=== PATIENT | female | born 1965 | race American Indian/Alaskan Native ===

== ENCOUNTER 2018-01-07 06:35 | Emergency (ER) | payer OTHER ==
[2018-01-07] MEDS ORDERED: TORADOL IM ONE (09:19)
--- NOTE | 2018-01-07 09:26 | Emergency Department Report ---
ED Lower Extremity HPI - General Chief Complaint: Extremity Problem,Nontraumatic Stated Complaint: LEG PAIN Time Seen by Provider: 01/07/18 09:10 Source: patient Mode of arrival: Ambulatory Limitations: No Limitations - History of Present Illness Initial Comments: This is a 52-year-old female nontoxic, well nourished in appearance, no acute signs of distress presents to the ED with c/o of bilateral knee pain and right thigh pain status post fall that occurred on 12/24/2017. Patient stated she was at work when a person fell on her and she strained her thigh and fell on her knees. Patient describes thigh pain as cramping. Patient stated that she did not have any trauma to the head or any other extremities. Patient stated that bilateral knees are swellown. Patient denies any joint redness, fever, chills, nausea, vomiting, chest pain or shortness breath. Patient denies abnormal or decreased gait. Patient denies any allergies or PMH. MD Complaint: thigh injury, knee injury Injury: Thigh: Left, Knee: Right, Left Type of Injury: blunt Place: work Severity: mild Severity scale (0 -10): 8 Improves With: immobilization Worsens With: movement, palpation Context: fall Associated Symptoms: swelling, able to partially bear weight, ambulatory. denies: snap/pop sensation, numbness, tingling, unable to bear weight - Related Data Previous Rx's Medication Instructions Recorded Last Taken Type Cyclobenzaprine [Flexeril] 10 mg PO QHS PRN #7 tablet 01/07/18 Unknown Rx Ibuprofen [Motrin] 600 mg PO Q8H PRN #30 tablet 01/07/18 Unknown Rx Allergies Allergy/AdvReac Type Severity Reaction Status Date / Time No Known Allergies Allergy Unverified 01/07/18 07:28 ED Review of Systems ROS: Stated complaint: LEG PAIN Other details as noted in HPI Constitutional: denies: chills, fever Eyes: denies: eye pain, eye discharge, vision change ENT: denies: ear pain, throat pain Respiratory: denies: cough, shortness of breath, wheezing Cardiovascular: denies: chest pain, palpitations Endocrine: no symptoms reported Gastrointestinal: denies: abdominal pain, nausea, diarrhea Genitourinary: denies: urgency, dysuria, discharge Musculoskeletal: arthralgia. denies: back pain, joint swelling Skin: denies: rash, lesions Neurological: denies: headache, weakness, paresthesias Psychiatric: denies: anxiety, depression Hematological/Lymphatic: denies: easy bleeding, easy bruising ED Past Medical Hx - Past Medical History Previous Medical History?: No - Surgical History Past Surgical History?: Yes Additional Surgical History: tubal ligation - Social History Smoking Status: Never Smoker Substance Use Type: Alcohol - Medications Home Medications: Home Medications Medication Instructions Recorded Confirmed Last Taken Type Cyclobenzaprine [Flexeril] 10 mg PO QHS PRN #7 tablet 01/07/18 Unknown Rx Ibuprofen [Motrin] 600 mg PO Q8H PRN #30 tablet 01/07/18 Unknown Rx ED Physical Exam - General Limitations: No Limitations General appearance: alert, in no apparent distress - Head Head exam: Present: atraumatic, normocephalic - Eye Eye exam: Present: normal appearance Pupils: Present: normal accommodation - ENT ENT exam: Present: normal exam, mucous membranes moist - Neck Neck exam: Present: normal inspection, full ROM. Absent: tenderness, meningismus, lymphadenopathy - Respiratory Respiratory exam: Present: normal lung sounds bilaterally. Absent: respiratory distress, wheezes, rales, rhonchi, stridor, chest wall tenderness, accessory muscle use, decreased breath sounds, prolonged expiratory - Cardiovascular Cardiovascular Exam: Present: regular rate, normal rhythm, normal heart sounds. Absent: bradycardia, tachycardia, irregular rhythm, systolic murmur, diastolic murmur, rubs, gallop - GI/Abdominal GI/Abdominal exam: Present: soft, normal bowel sounds. Absent: distended, tenderness, guarding, rebound, rigid, diminished bowel sounds - Rectal Rectal exam: Present: deferred - Extremities Exam Extremities exam: Present: normal inspection, full ROM, tenderness, normal capillary refill. Absent: pedal edema, joint swelling, calf tenderness - Expanded Lower Extremity Exam Right Hip exam: Present: normal inspection (bilateral exam), full ROM. Absent: tenderness, swelling Upper Leg exam: Present: normal inspection (bilateral exam), full ROM, tenderness (right thigh anterior). Absent: swelling, abrasion, laceration, ecchymosis, deformity, crepidus, dislocation, erythema Knee exam: Present: normal inspection (bilateral exam), full ROM, tenderness ( bilateral), full knee extension. Absent: swelling, abrasion, laceration, ecchymosis, deformity, crepidus, dislocation, erythema, effusion, pain w/ pronation/supination, posterior draw sign, pain/laxity with valgus, pain/laxity with varus Lower Leg exam: Present: normal inspection (bilateral exam), full ROM. Absent: tenderness, swelling Ankle exam: Present: normal inspection (bilateral exam), full ROM. Absent: tenderness, swelling Foot/Toe exam: Present: normal inspection (bilateral exam). Absent: full ROM, tenderness, swelling Neuro vascular tendon exam: Present: no vascular compromise (bilateral exam). Absent: pulse deficit, abnormal cap refill, motor deficit, sensory deficit, tendon deficit, extremity cold to touch, pallor, abnormal 2-point discrimination , decreased fine/light touch, foot drop, peroneal nerve deficit, significant pain with passive ROM of distal joint Gait: Positive: observed and limited by pain (bilateral exam) - Back Exam Back exam: Present: normal inspection, full ROM. Absent: tenderness, CVA tenderness (R), CVA tenderness (L), paraspinal tenderness, vertebral tenderness - Neurological Exam Neurological exam: Present: alert, oriented X3, normal gait - Psychiatric Psychiatric exam: Present: normal affect, normal mood - Skin Skin exam: Present: warm, dry, intact, normal color. Absent: rash ED Course Vital Signs 01/07/18 07:15 Temperature 98.1 F Pulse Rate 83 Respiratory 18 Rate Blood Pressure 165/108 O2 Sat by Pulse 98 Oximetry - Reevaluation(s) Reevaluation #1: 01/07/18 09:27 Patient is speaking in full sentences with no signs of distress noted. ED Lower Extremity MDM - Medical Decision Making This is a 52-year-old female that presents with bilateral knee and right thigh strain. Patient is stable and was examined by me. I referred patient to an orthopedic doctor for further evaluation for possible MRI. X-ray has been obtained and dictated by the radiologist. Patient is notified of the x-ray report with noted by the patient. Patient does have normal gait with no tenderness and no joint swelling. No ecchymosis. no joint redness or swelling. Not warm to touch. No signs of cellulites present. Patient received a walker in the ED. Patient was instructed to RICE therapy. 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 Patient is discharged with Motrin and Flexiril and was instructed not to operate any machinery while taking Flexeril due to possible drowsiness. At time of discharge, the patient does not seem toxic or ill in appearance. No acute signs of distress noted. Patient agrees to discharge treatment plan of care. No further questions noted by the patient. Critical care attestation.: If time is entered above; I have spent that time in minutes in the direct care of this critically ill patient, excluding procedure time. ED Disposition Clinical Impression: Strain of knee, bilateral Muscle strain of right thigh Qualifiers: Encounter type: initial encounter Qualified Code(s): S76.911A - Strain of unspecified muscles, fascia and tendons at thigh level, right thigh, initial encounter Disposition: TO HOME OR SELFCARE Is pt being admited?: No Does the pt Need Aspirin: No Condition: Stable Instructions: Muscle Strain (ED), Knee Pain (ED), RICE Therapy (ED), Cyclobenzaprine (By mouth), Ibuprofen (By mouth) Additional Instructions: Follow-up with your primary care doctor in 3-5 days or if symptoms worsen such as bladder or bowel stability, chest pain, short of breath, numbness or tingling sensation in extremities, headache, dizziness, visual changes, nausea vomiting, or abdominal pain, return back to emergency room as was possible. Take ibuprofen and Flexeril as prescribed. Do not operate heavy machinery while taking Flexeril due to sedation Prescriptions: Cyclobenzaprine [Flexeril] 10 mg PO QHS PRN #7 tablet PRN Reason: Muscle Spasm Ibuprofen [Motrin] 600 mg PO Q8H PRN #30 tablet PRN Reason: Pain Referrals: PRIMARY CAREMD [Primary Care Provider] - 3-5 Days MENG SHRESTHA MD [Staff Physician] - 3-5 Days MARY SMITH MD [Staff Physician] - 3-5 Days [facility] [Outside] - 3-5 Days [facility] [Outside] - 3-5 Days Forms: Work/School Release Form(ED)
[2018-01-07 09:50] VITALS: BP 152/104
--- NOTE | 2018-01-07 10:11 | XRay Report ---
RIGHT FEMUR: HISTORY: pain. AP and lateral views of the femur demonstrate normal mineralization and contours for this patient's age. No destructive changes are noted and the adjacent soft tissues are normal. Moderate osteoarthritic changes are identified at the right hip. IMPRESSION: Normal right femur.
--- NOTE | 2018-01-07 10:11 | XRay Report ---
RIGHT KNEE, 3 views: History: Fall with pain. The bony architecture is intact without evidence of fracture or dislocation. Mild osteoarthritic changes are noted. No significant soft tissue abnormality is seen. IMPRESSION: Mild osteoarthritis.
== END 2018-01-07 10:31 | disposition home or self-care (01) ==
LOC: ED 06:35
DX: S76.912A Strain of unspecified muscles, fascia and tendons at thigh level, left thigh, initial encounter (principal); S76.911A Strain of unspecified muscles, fascia and tendons at thigh level, right thigh, initial encounter; W18.30XA Fall on same level, unspecified, initial encounter; Y93.89 Activity, other specified; Y99.8 Other external cause status; Y92.89 Other specified places as the place of occurrence of the external cause
CPT/HCPCS: 73552; 73562; 96372; 99283; J1885

== ENCOUNTER 2020-08-08 23:44 | Emergency (ER) | payer OTHER ==
[2020-08-09 01:51] LABS: Hematocrit 34.8 % (30.3-42.9); Hemoglobin 11.2 gm/dl (10.1-14.3); Mean Corpuscular HGB Conc 32 % (30-34); Mean Corpuscular Volume 70 fl (79-97); Platelet Count 224 K/mm3 (140-440); Red Blood Count 4.94 M/mm3 (3.65-5.03); Red Cell Distribution Width 15.6 % (13.2-15.2)
[2020-08-09 01:59] LABS: Basophils % (Auto) 0.3 % (0.0-1.8); Eosinophils % (Auto) 0.7 % (0.0-4.3); Lymphocytes # (Auto) 0.8 K/mm3 (1.2-5.4); Lymphocytes % (Auto) 12.4 % (13.4-35.0); Monocytes # (Auto) 1.1 K/mm3 (0.0-0.8)
[2020-08-09 02:08] LABS: Blood Urea Nitrogen 11 mg/dL (7-17); Calcium 9.6 mg/dL (8.4-10.2); Hemolysis Index 0
--- NOTE | 2020-08-09 02:16 | XRay Report ---
CHEST 1 VIEW INDICATION: Chest Pain. COMPARISON: None FINDINGS: SUPPORT DEVICES: None. HEART: Within normal limits. LUNGS/PLEURA: No acute air space or interstitial disease. ADDITIONAL FINDINGS: None. IMPRESSION: 1. No acute findings. Signer Name: Tyson Klein MD Signed: 08/09/2020 2:12 AM Workstation Name: [id number]
[2020-08-09 02:28] LABS: BUN/Creatinine Ratio 16
[2020-08-09] MEDS ORDERED: METOPROLOL TARTRATE 5 MG/5 ML INJ IV ONE (06:04)
[2020-08-09] MEDS ORDERED: ACETAMINOPHEN 325 MG TAB PO ONE (06:04)
--- NOTE | 2020-08-09 06:06 | Emergency Department Report ---
ED General Adult HPI - General Chief complaint: Headache Stated complaint: HEADACHE FEVER KNEE PAIN Time Seen by Provider: 08/09/20 05:58 Source: patient Mode of arrival: Ambulatory Limitations: No Limitations - History of Present Illness Initial comments: Patient is a 53-year-old female presents emergency department for evaluation of intermittent mild frontal headache associated with mild diffuse body aches x2 to 3 days. Patient denies fever, denies cough, shortness of breath. Severity scale (0 -10): 0 - Related Data Previous Rx's Medication Instructions Recorded Last Taken Type Cyclobenzaprine [Flexeril] 10 mg PO QHS PRN #7 tablet 01/07/18 Unknown Rx Ibuprofen [Motrin] 600 mg PO Q8H PRN #30 tablet 01/07/18 Unknown Rx Albuterol Mdi (or & Nicu Only) 2 puff IH QID PRN #1 inhalation 07/28/18 Unknown Rx [ProAir HFA Inhaler] HYDROcodone/APAP 5-325 [[place] 1 each PO Q4HR PRN #12 tablet 07/28/18 Unknown Rx 5/325] Ibuprofen [Motrin] 600 mg PO Q8H PRN #20 tablet 07/28/18 Unknown Rx Ondansetron [Zofran Odt] 4 mg PO Q8HR PRN #10 tab.rapdis 07/28/18 Unknown Rx predniSONE [Deltasone] 20 mg PO QDAY #5 tab 07/28/18 Unknown Rx amLODIPine 5 mg PO DAILY #30 tab 08/09/20 Unknown Rx Allergies Allergy/AdvReac Type Severity Reaction Status Date / Time Penicillins Allergy Unknown Verified 08/09/20 00:37 ED Review of Systems ROS: Stated complaint: HEADACHE FEVER KNEE PAIN Other details as noted in HPI Comment: All other systems reviewed and negative ED Past Medical Hx - Past Medical History Previous Medical History?: Yes Hx Hypertension: Yes (New onset) Hx GERD: Yes Additional medical history: Cataracts. Seasonal Allergies - Surgical History Past Surgical History?: Yes Additional Surgical History: tubal ligation. x1 - Social History Smoking Status: Never Smoker Substance Use Type: Alcohol - Medications Home Medications: Home Medications Medication Instructions Recorded Confirmed Last Taken Type Cyclobenzaprine [Flexeril] 10 mg PO QHS PRN #7 tablet 01/07/18 Unknown Rx Ibuprofen [Motrin] 600 mg PO Q8H PRN #30 tablet 01/07/18 Unknown Rx Albuterol Mdi (or & Nicu Only) 2 puff IH QID PRN #1 inhalation 07/28/18 Unknown Rx [ProAir HFA Inhaler] HYDROcodone/APAP 5-325 [[place] 1 each PO Q4HR PRN #12 tablet 07/28/18 Unknown Rx 5/325] Ibuprofen [Motrin] 600 mg PO Q8H PRN #20 tablet 07/28/18 Unknown Rx Ondansetron [Zofran Odt] 4 mg PO Q8HR PRN #10 tab.rapdis 07/28/18 Unknown Rx predniSONE [Deltasone] 20 mg PO QDAY #5 tab 07/28/18 Unknown Rx amLODIPine 5 mg PO DAILY #30 tab 08/09/20 Unknown Rx ED Physical Exam - General Limitations: No Limitations General appearance: alert, in no apparent distress - Head Head exam: Present: atraumatic, normocephalic - Eye Eye exam: Present: normal appearance - ENT ENT exam: Present: mucous membranes moist - Neck Neck exam: Present: normal inspection - Respiratory Respiratory exam: Present: normal lung sounds bilaterally. Absent: respiratory distress - Cardiovascular Cardiovascular Exam: Present: regular rate, normal rhythm. Absent: systolic murmur, diastolic murmur, rubs, gallop - GI/Abdominal GI/Abdominal exam: Present: soft, normal bowel sounds - Extremities Exam Extremities exam: Present: normal inspection - Back Exam Back exam: Present: normal inspection - Neurological Exam Neurological exam: Present: alert, oriented X3 - Psychiatric Psychiatric exam: Present: normal affect, normal mood - Skin Skin exam: Present: warm, dry, intact, normal color. Absent: rash ED Course Vital Signs 08/09/20 08/09/20 08/09/20 00:33 01:08 04:14 Temperature 98.7 F 98.6 F Pulse Rate 87 92 H 85 Respiratory 16 18 16 Rate Blood Pressure 182/115 186/123 180/115 O2 Sat by Pulse 97 97 96 Oximetry 08/09/20 08/09/20 08/09/20 04:15 04:32 04:45 Temperature Pulse Rate 84 90 Respiratory 15 Rate Blood Pressure 188/98 202/119 O2 Sat by Pulse 97 99 97 Oximetry 08/09/20 08/09/20 08/09/20 04:57 05:00 05:01 Temperature Pulse Rate 82 84 86 Respiratory 33 H 11 L 30 H Rate Blood Pressure 202/119 199/118 199/118 O2 Sat by Pulse 97 98 95 Oximetry 08/09/20 08/09/20 08/09/20 05:13 05:21 05:35 Temperature Pulse Rate 92 H 85 84 Respiratory 13 15 Rate Blood Pressure 202/119 198/120 198/120 O2 Sat by Pulse 99 96 Oximetry 08/09/20 08/09/20 08/09/20 05:41 05:45 06:00 Temperature Pulse Rate 86 84 82 Respiratory 27 H 24 34 H Rate Blood Pressure 201/125 193/119 192/114 O2 Sat by Pulse 99 97 98 Oximetry 08/09/20 08/09/20 08/09/20 06:21 06:40 07:01 Temperature Pulse Rate 84 97 H Respiratory 13 25 H Rate Blood Pressure 181/101 174/118 185/129 O2 Sat by Pulse 98 94 Oximetry 08/09/20 08/09/20 07:20 08:15 Temperature Pulse Rate Respiratory Rate Blood Pressure 184/117 166/99 O2 Sat by Pulse 100 Oximetry - Reevaluation(s) Reevaluation #1: 08/09/20 06:05 Patient initially treated with IV Lopressor and p.o. Tylenol. Reevaluation #2: 08/09/20 08:31 Patient treated with IV normal saline for myalgias and complaint of dehydration. Treated with clonidine p.o. and Tylenol p.o. On reevaluation, patient in no acute distress, denies headache. Neurologic exam remains nonfocal, patient now with resolving hypertension. Advised patient follow-up with primary care physician for reevaluation and formal hypertension evaluation. ED Medical Decision Making - Lab Data Result diagrams: 08/09/20 01:18 08/09/20 01:18 Lab Results 08/09/20 08/09/20 08/09/20 Range/Units 01:18 01:18 04:07 WBC 6.7 (4.5-11.0) K/mm3 RBC 4.94 (3.65-5.03) M/mm3 Hgb 11.2 (10.1-14.3) gm/dl Hct 34.8 (30.3-42.9) % MCV 70 L (79-97) fl MCH 23 L (28-32) pg MCHC 32 (30-34) % RDW 15.6 H (13.2-15.2) % Plt Count 224 (140-440) K/mm3 Lymph % (Auto) 12.4 L (13.4-35.0) % [place] % (Auto) [employer] Eos % (Auto) 0.7 (0.0-4.3) % Baso % (Auto) 0.3 (0.0-1.8) % Lymph # (Auto) 0.8 L (1.2-5.4) K/mm3 [place] # (Auto) 1.1 H (0.0-0.8) K/mm3 Eos # (Auto) 0.0 (0.0-0.4) K/mm3 Baso # (Auto) 0.0 (0.0-0.1) K/mm3 Seg Neutrophils % 70.4 H (40.0-70.0) % Seg Neutrophils # 4.7 (1.8-7.7) K/mm3 Sodium 138 (137-145) mmol/L Potassium 4.0 (3.6-5.0) mmol/L Chloride 102.7 (98-107) mmol/L Carbon Dioxide 23 (22-30) mmol/L Anion Gap 16 mmol/L BUN 11 (7-17) mg/dL Creatinine 0.7 (0.6-1.2) mg/dL Estimated GFR > 60 ml/min BUN/Creatinine Ratio 16 % Glucose 102 H (65-100) mg/dL Calcium 9.6 (8.4-10.2) mg/dL Troponin T < 0.010 < 0.010 (0.00-0.029) ng/mL 08/09/20 Range/Units 07:07 WBC (4.5-11.0) K/mm3 RBC (3.65-5.03) M/mm3 Hgb (10.1-14.3) gm/dl Hct (30.3-42.9) % MCV (79-97) fl MCH (28-32) pg MCHC (30-34) % RDW (13.2-15.2) % Plt Count (140-440) K/mm3 Lymph % (Auto) (13.4-35.0) % [place] % (Auto) Eos % (Auto) (0.0-4.3) % Baso % (Auto) (0.0-1.8) % Lymph # (Auto) (1.2-5.4) K/mm3 [place] # (Auto) (0.0-0.8) K/mm3 Eos # (Auto) (0.0-0.4) K/mm3 Baso # (Auto) (0.0-0.1) K/mm3 Seg Neutrophils % (40.0-70.0) % Seg Neutrophils # (1.8-7.7) K/mm3 Sodium (137-145) mmol/L Potassium (3.6-5.0) mmol/L Chloride (98-107) mmol/L Carbon Dioxide (22-30) mmol/L Anion Gap mmol/L BUN (7-17) mg/dL Creatinine (0.6-1.2) mg/dL Estimated GFR ml/min BUN/Creatinine Ratio % Glucose (65-100) mg/dL Calcium (8.4-10.2) mg/dL Troponin T < 0.010 (0.00-0.029) ng/mL Vital Signs 08/09/20 08/09/20 08/09/20 00:33 01:08 04:14 Temperature 98.7 F 98.6 F Pulse Rate 87 92 H 85 Respiratory 16 18 16 Rate Blood Pressure 182/115 186/123 180/115 O2 Sat by Pulse 97 97 96 Oximetry 08/09/20 08/09/20 08/09/20 04:15 04:32 04:45 Temperature Pulse Rate 84 90 Respiratory 15 Rate Blood Pressure 188/98 202/119 O2 Sat by Pulse 97 99 97 Oximetry 08/09/20 08/09/20 08/09/20 04:57 05:00 05:01 Temperature Pulse Rate 82 84 86 Respiratory 33 H 11 L 30 H Rate Blood Pressure 202/119 199/118 199/118 O2 Sat by Pulse 97 98 95 Oximetry 08/09/20 08/09/20 08/09/20 05:13 05:21 05:35 Temperature Pulse Rate 92 H 85 84 Respiratory 13 15 Rate Blood Pressure 202/119 198/120 198/120 O2 Sat by Pulse 99 96 Oximetry 08/09/20 08/09/20 08/09/20 05:41 05:45 06:00 Temperature Pulse Rate 86 84 82 Respiratory 27 H 24 34 H Rate Blood Pressure 201/125 193/119 192/114 O2 Sat by Pulse 99 97 98 Oximetry 08/09/20 08/09/20 08/09/20 06:21 06:40 07:01 Temperature Pulse Rate 84 97 H Respiratory 13 25 H Rate Blood Pressure 181/101 174/118 185/129 O2 Sat by Pulse 98 94 Oximetry 08/09/20 08/09/20 07:20 08:15 Temperature Pulse Rate Respiratory Rate Blood Pressure 184/117 166/99 O2 Sat by Pulse 100 Oximetry - EKG Data -: EKG Interpreted by Me (Sinus rhythm 86, no ST-T changes, normal QRS as read by me) Critical care attestation.: If time is entered above; I have spent that time in minutes in the direct care of this critically ill patient, excluding procedure time. ED Disposition Clinical Impression: Headache, Myalgia, Hypertensive disorder Disposition: - TO HOME OR SELFCARE Is pt being admited?: No Condition: Stable Instructions: Hypertension (ED), Hypertension, Adult, [id number] Additional Instructions: Follow-up with primary care doctor in 1 to 2 days for reevaluation. You require a formal evaluation for hypertension. Please note a primary care physician has been provided on your discharge in the event you are unable to follow-up with your own physician or clinic. Return to the emergency department for worsening symptoms. Prescriptions: amLODIPine 5 mg PO DAILY #30 tab Referrals: DEBORAH JEAN BAPTISTE MD [Primary Care Provider] - 3-5 Days ESMER NIÑO MD [Staff Physician] - 3-5 Days
[2020-08-09] MEDS ORDERED: SODIUM CHLORIDE 0.9% 1000 ML 1,000 ML IV ONE (06:26)
[2020-08-09] MEDS ORDERED: cloNIDine 0.1 MG TAB PO ONE (07:52)
[2020-08-09 08:52] VITALS: BP 151/102
== END 2020-08-09 09:00 | disposition home or self-care (01) ==
LOC: ED 23:44
DX: I10 Essential (primary) hypertension (principal); M79.10 Myalgia, unspecified site; R51.9 Headache, unspecified; K21.9 Gastro-esophageal reflux disease without esophagitis; Z98.51 Tubal ligation status; Z79.899 Other long term (current) drug therapy; Z88.0 Allergy status to penicillin; Z98.890 Other specified postprocedural states
CPT/HCPCS: 36415; 71045; 80048; 84484; 85025; 93005; 96360; 99284; J7030

== ENCOUNTER 2020-10-14 11:35 | Emergency (ER) | payer SELFPAY ==
[2020-10-14 12:07] VITALS: BP 148/92
== END 2020-10-14 13:55 | disposition left against medical advice (07) ==
LOC: ED 11:35
DX: R53.1 Weakness (principal); Z53.21 Procedure and treatment not carried out due to patient leaving prior to being seen by health care provider